=== PATIENT | female | born 1960 | race African-American/Black ===

== ENCOUNTER 2019-04-30 09:47 | Emergency (ER) | payer MEDICAID, MEDICARE ==
[~2019-04-30] VITALS: Ht 154.9 cm; Wt 82.0 kg
[2019-04-30] MEDS ORDERED: ACETAMINOPHEN 325MG TABLET PO ONE (10:15)
[2019-04-30 11:35] VITALS: BP 130/69
== END 2019-04-30 11:37 | disposition home or self-care (01) ==
LOC: ER 09:47
DX: S32.019A Unspecified fracture of first lumbar vertebra, initial encounter for closed fracture (principal); F04 Amnestic disorder due to known physiological condition; M79.605 Pain in left leg; M79.604 Pain in right leg; F10.129 Alcohol abuse with intoxication, unspecified; Y90.9 Presence of alcohol in blood, level not specified; I11.9 Hypertensive heart disease without heart failure; W19.XXXA Unspecified fall, initial encounter; Y93.89 Activity, other specified; Y92.811 Bus as the place of occurrence of the external cause
CPT/HCPCS: 72100; 99284